=== PATIENT | male | born 1955 | race Caucasian/White ===

== ENCOUNTER 2016-08-30 23:23 | Emergency (ER) | payer MEDICARE ==
[2016-08-30] MEDS ORDERED: LABETALOL HCL INJ 20 MG/4 ML DISP.SYRIN IV ONE (23:46)
--- NOTE | 2016-08-30 23:46 | ER Document Report ---
ED Neuro Symptoms/Deficit - General Mode of Arrival: Medic Information source: Patient, Relative - , Emergency Med Personnel - HPI Patient complains to provider of: Weakness - left Onset: Just prior to arrival - 221 Associated symptoms: Other - See above <BO TOLLIVER - Last Filed: 08/31/16 04:26> <ZAINKRISTEN WILBERT - Last Filed: 08/31/16 05:59> - General Chief Complaint: S/S of Possible Stroke Stated Complaint: POSSIBLE STROKE Notes: Patient is a 61 year old male, with a past medical history including CHF, HTN, and COPD, who presents to the emergency department via EMS for possible stroke onset at 2210 last night. Per , patient had bent over to kiss her yasir and as he walked away he started to look dazed and confused and then lost complete control of his entire left side. Patient's gave him a Alexi Aspirin. EMS report that when they got to the scene patient did not have any left side control. Patient states that he was able to move his left limbs. reports patient has a history of heavy drinking but not for a long time and that this weekend he did drink a little more than usual. denies any change in medications. Patient complains of shaking in his right leg that he cannot control. Patient denies any chest pain or headache. (BO TOLLIVER) - Related Data Allergies/Adverse Reactions: Penicillins Allergy (Verified 08/30/16 23:51) Past Medical History - General Information source: Patient - Social History Smoking Status: Current Every Day Smoker Frequency of alcohol use: Occasional Family History: Reviewed & Not Pertinent - Past Medical History Cardiac Medical History: Reports: Hx Congestive Heart Failure, Hx Hypertension Pulmonary Medical History: Reports: Hx COPD Past Surgical History: Reports: Hx Cardiac Surgery - aortic valve replacement, Hx Coronary Stent - 3 <BO TOLLIVER - Last Filed: 08/31/16 04:26> Review of Systems - Review of Systems Constitutional: See HPI, Weakness EENT: No symptoms reported Cardiovascular: No symptoms reported Respiratory: No symptoms reported Gastrointestinal: No symptoms reported Genitourinary: No symptoms reported Male Genitourinary: No symptoms reported Musculoskeletal: No symptoms reported Skin: No symptoms reported Hematologic/Lymphatic: No symptoms reported Neurological/Psychological: See HPI, Tremor -: Yes All other systems reviewed and negative <BO TOLLIVER - Last Filed: 08/31/16 04:26> Physical Exam - Vital signs Interpretation: Hypertensive, Tachycardic - General General appearance: Alert In distress: Moderate - HEENT Head: Normocephalic, Atraumatic Eyes: Normal Conjunctiva: Normal Cornea: Normal Visual mcdaniel normal: No - deficit L half of visual field Ears: Normal Nasal: Normal Mouth/Lips: Normal Mucous membranes: Normal Pharynx: Normal Neck: Normal - Respiratory Respiratory status: No respiratory distress Breath sounds: Normal - Cardiovascular Rhythm: Regular, Tachycardia - Abdominal Inspection: Normal Tenderness: Nontender - Back Back: Normal - Extremities General upper extremity: Normal inspection. No: Normal ROM General lower extremity: Normal inspection. No: Normal ROM - Neurological Neuro grossly intact: No Cognition: Normal Orientation: AAOx4 [place] Coma Scale Eye Opening: Spontaneous Eligio Coma Scale Verbal: Oriented Eligio Coma Scale Motor: Obeys Commands Eligio Coma Scale Total: 15 Speech: Dysarthria Cranial nerves: Facial palsy Motor strength normal: RUE, RLE. 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 - Skin Skin Temperature: Warm Skin Moisture: Dry Skin Color: Normal <KRISTEN PITTMAN - Last Filed: 08/31/16 05:59> - Vital signs Vitals: Temp 98.7 F 08/30/16 23:35 Course - Laboratory Result Diagrams: 08/30/16 23:40 08/30/16 23:40 - [facility] - Discussed patient for possible transfer [facility] Time consulted: 00:22 - Discussed patient with neurology at [facility] and was agreed patient is a candidate for lytics, accepted patient to transfer to ER <BO TOLLIVER - Last Filed: 08/31/16 04:26> - Laboratory Result Diagrams: 08/30/16 23:40 08/30/16 23:40 - Diagnostic Test Radiology reviewed: Image reviewed, Reports reviewed - EKG Interpretation by Me EKG shows normal: Sinus rhythm Rate: Normal Rhythm: NSR <KRISTEN PITTMAN - Last Filed: 08/31/16 05:59> - Re-evaluation Re-evalutation: Patient is a 61-year-old male who comes in with a left-sided deficit and left visual field deficit. Patient appears to have a left daniela-neglect well. Patient's symptoms began at 10 PM. Patient has no contraindications for lytics. Patient has not had improvement of his symptoms since they began. Patient was discussed with neurologist who agrees with the plan to give lytics his lungs are is no contraindication. Patient has been given labetalol for his blood pressure which is brought in down within an acceptable range. Patient will be transferred to [place] after lytics and been given. This is been discussed with length and family who agrees with this plan. Risk benefits of alteplase a been discussed and they would like to proceed. Stable at time of air transfer to [facility] (KRISTEN PITTMAN) - Vital Signs Vital signs: Temp Pulse Resp BP Pulse Ox 98.7 F 110 H 20 128/80 H 98 08/30/16 23:35 08/31/16 01:18 08/31/16 01:18 08/31/16 01:18 08/31/16 01:18 - Laboratory Laboratory results interpreted by me: 08/30/16 08/30/16 08/30/16 23:40 23:40 23:46 Hgb 18.1 H Hct 52.1 H MCV 98 H MCH 34.2 H Glucose 221 H POC Glucose 249 H Creatine Kinase 355 H 08/31/16 01:47 Hgb Hct MCV MCH Glucose POC Glucose 187 H Creatine Kinase Critical Care Note - Critical Care Note Total time excluding time spent on procedures (mins): 90 - evaluation and management of acute CVA with multiple re-evaluations, counseling of patient and family, transfer to tertiary care center <KRISTEN PITTMAN - Last Filed: 08/31/16 05:59> Discharge <BO TOLLIVER - Last Filed: 08/31/16 04:26> <KRISTEN PITTMAN - Last Filed: 08/31/16 05:59> - Discharge Clinical Impression: Acute CVA (cerebrovascular accident) Condition: Stable Disposition: [facility] Scribe Attestation: 08/31/16 05:59 I personally performed the services described in the documentation, reviewed and edited the documentation which was dictated to the scribe in my presence, and it accurately records my words and actions. (KRISTEN PITTMAN) ED NIH Stroke Scale - NIH Stroke Scale When completed:: Before Alteplase *: 1. NIH scale should be completed with appropriate accompanying assessment tools. *: 2. The NIH should reflect what the patient is capable of doing and should not be coached by the clinician. 1a. Level of Consciousness: 0=Alert;keenly responsive -: 1=Drowsy -: 2=Obtunded -: 3=Coma/unresponsive or reflex to noxious stimuli. 1a. Responses: 0 1b. Orientation Questions: a. What month is it? -: b. How old are you? -: 0=Answers both questions correctly. -: 1=Answers one question correctly or patient is intubated or has orotracheal trauma. -: 2=Answers neither question correctly. 1b. Responses: 0 1c. Response to commands: a. Open and close eyes? -: b. Access Clerk and release hand? -: Credit is given despite weakness. Demonstration of task is permitted. Substitute command if hands cannot be used. -: 0=Performs both tasks correctly -: 1=Performs one task correctly -: 2=Performs neither task correctly 1c. Responses: 0 2. Gaze: Establish eye contact and instruct patient to "Follow my finger" -: 0=Normal -: 1=Partial gaze palsy. Gaze is abnormal in one or both eyes, but where forced deviation or total gaze paresis is not present. -: 2=Forced deviation or total gaze paresis. 2. Responses: 1 3. Visual Mcdaniel: Sees fingers in all four quadrants. -: 0=No visual loss. -: 1=Partial hemianopsia. -: 2=Complete hemianopsia. -: 3=Bilateral hemianopsia (including Cortical blindness) 3. Responses: 2 4. Facial Movement: Instruct patient to: -: a. Show me your teeth -: b. Raise your eyebrows -: c. Close your eyes -: d. Smile -: 0=Normal symmetrical movement -: 1=Minor paralysis (flattened nasolabial fold, asymmetry on smiling). -: 2=Partial paralysis (total or near total paralysis of lower face). -: 3=Complete paralysis of upper and lower face 4. Responses: 1 5. Motor functions (left arm): Alternate sides and extend each arm with palms down (90 degrees if sitting or 45 degrees for supine). -: 0=No drift;limb holds for full 10 seconds. -: 1=Drift; limb holds but drifts down before full 10 seconds, but does not hit bed. -: 2=Some effort against gravity; limb cannot get to or maintain position. -: 3=No effort against gravity; limb falls. -: 4=No movement. -: UN=Amputation, joint fusion, explain in comments. 5. Responses (left arm): 3 5. Motor Functions (right arm): Alternate sides and extend each arm with palms down (90 degrees if sitting or 45 degrees for supine). -: 0=No drift;limb holds for full 10 seconds. -: 1=Drift; limb holds but drifts down before full 10 seconds, but does not hit bed. -: 2=Some effort against gravity; limb cannot get to or maintain position. -: 3=No effort against gravity; limb falls. -: 4=No movement. -: UN=Amputation, joint fusion, explain in comments. 5. Responses (right arm): 0 6. Motor Functions (left leg): With patient lying supine, alternate sides and extend each leg (30 degrees always while supine). -: 0=No drift, leg holds position for full 5 seconds -: 1=Drift; leg falls before full 5 seconds but does not hit bed. -: 2=Some effort against gravity, leg falls to bed but some effort against gravity. -: 3=No effort against gravity, leg falls to bed immediately. -: 4=No movement. -: UN=Amputation, joint fusion; explain in comments. 6. Responses (left leg): 3 6. Motor Functions (right leg): With patient lying supine, alternate sides and extend each leg (30 degrees always while supine). -: 0=No drift, leg holds position for full 5 seconds -: 1=Drift; leg falls before full 5 seconds but does not hit bed. -: 2=Some effort against gravity, leg falls to bed but some effort against gravity. -: 3=No effort against gravity, leg falls to bed immediately. -: 4=No movement. -: UN=Amputation, joint fusion; explain in comments. 6. Responses (right leg): 0 7. Limb Ataxia: With eyes open instruct patient to: -: a. "Touch your finger to your nose". -: b. "Touch your heel to your dahl" -: 0=Absent -: 1=Present in one limb. -: 2=Present in two limbs. -: UN=Amputation or joint fusion; explain in comments. 7. Responses: 2 8. Sensory: Test sensation using pinprick or noxious stimuli. Test as many body parts as possible. -: 0=Normal;no sensory loss -: 1=Mile to moderate sensory loss (patient feels pin prick but is less sharp on affected side). -: 2=Severe or total sensory loss. 8. Responses: 0 9. Best Language: Instruct patient to: -: a. "Describe what you see in this picture." -: b. "Name the items in this picture." -: c. "Read these sentences." -: 0=No aphasia, normal -: 1=Mild to moderate aphasia. -: 2=Severe aphasia -: 3=Mute, global aphasia, no usable speech or auditory comprehension. 9. Responses: 1 10. Articulation, Dysarthia: Instruct patient to: -: "Read these words" or "Repeat these words" -: 0=Normal -: 1=Mild to moderate; patient may slur some words but can be understood without difficulty. -: 2=Severe; patients speech so slurred as to be unintelligible in the absence of dysphasia. -: UN=Intubated or other physical barrier, explain in comments. 10. Responses: 1 11. Extinction or inattention: 0=No abnormality -: 1= Visual, tactile, auditory, spatial, or personal inattention or extinction to bilateral simulation in one or the sensory modalities. -: 2=Profound daniela-inattention or daniela-inattention to more than one modality; does not recognize own hand. Total Score: 14 <KRISTEN PITTMAN - Last Filed: 08/31/16 05:59> Scribe Documentation - Scribe Written by Julio:: julio Soares, 08/31/16, 0240 acting as scribe for :: Zain <BO TOLLIVER - Last Filed: 08/31/16 04:26> ED Alteplase Inc/Exc Criteria - Inclusion Criteria: 1: Patient presented to ED within 3 hours of acute ischemic stroke symptom onset ? -: Yes 2: Did baseline CT exclude intracranial hemorrhage and/or other risk factors? -: Yes 3: Is the age of the patient 18 years of age or greater? -: Yes : If any of the above questions are answered "NO" then stop, patient is not a candidate for Alteplase, : If all of the above questions are answered "YES" then continue with Exclusion Criteria. - Exclusion Criteria: 1: Is there evidence of intracranial hemorrhage on baseline CT? -: No 2: Is there suspicion of subarachnoid hemorrhage (even if CT negative)? -: No 3: Is there a history of serious head trauma, recent previous stroke or SD within 3 months? -: No 4: Does the patient have a clinical presentation consistent with SD or post-SD pericarditis? -: No 5: Is there history of intracranial hemorrhage? -: No 6: On repeated measurement is Systolic BP greater than 185mmHg or Diastolic BP greater that 110 mmHg and is aggressive treatment needed to reduce blood pressure to these limits (e.g. constant infusion of an anti-hypertensive)? -: No 7: Did the patient awake with stroke symptoms? -: No 8: Has the patient had a lumbar puncture or an arterial puncture at a non- compressile site within 7 days? -: No 9: With in the last 14 days did the patient have surgery or major trauma? -: No 10: Is the patient or less than 2 weeks? -: No 11: Was there any active bleeding or acute trauma? -: No 12: Does the patient have intracranial neoplasm, arteriovenous malformation or aneurysm? -: No 13: Does the patient have abnormal glucose (less than 50 or greater than 400mg/ dl)? Record glucose in Comment. -: No 14: Patient has rapidly improving symptoms at the time Alteplase is to be Administered. -: No 15: Does the patient have any risks for bleeding, including but not limited to: a.: Current use of Coumadin with PT greater than 15 seconds or INR greater than 1.7. b.: Current use of Pradaxa (Dabigatran). c.: Heparin administereed within the past 48 hours and PTT elevated. d.: Platelet count less than 100,000/mm. e.: Major surgery or serious trauma within 14 days. f.: Gastrointestinal or gynecological urinary bleeding within 14 days. g.: Myocardial Infarction (SD) within 3 months. -: No : If the answer to any of the above questions is "YES" then stop, the patient is not a candidate for Alteplase. : If the answer to all of the above questions is "NO" then the patient may be eligible for the Administration of Alteplase. : If the patient is noted to have seizure activity at onset of Stroke symptoms; Consult Neurologist for further evaluation. - The patient is: -: Included and is eligible to receive Alteplase. *Initiate bed placement at higher level of care* --: Yes - Michelledant Reviewd risks & benefits of thrombolytic therapy: I have reviewed the risks and benefits of thrombolytic therapy with the patient and/or his/her family. Yes -: Excluded and not eligible to receive Alteplase for the above exclusions. --: No -: Excluded and not eligible to receive Alteplase for other reasons (specify in comments): --: No - Diagnosis of TIA: -: Patient presented with transient symptoms that are now resolved and no other neurologic findings are currently present. List symptoms in comments. -: No -: Patient is NOT a candidate for tPA. -: No -: ____(put name in comment) has been consulted for admission and continued evaluation of risk factor assessment. Comment: Aaron <KRISTEN PITTMAN - Last Filed: 08/31/16 05:59>
[2016-08-30 23:48] LABS: ABSOLUTE BASOPHILS # (AUTO) 0.1 10^3/uL (0.0-0.2); ABSOLUTE EOSINOPHILS # (AUTO) 0.1 10^3/uL (0.0-0.6); ABSOLUTE LYMPHOCYTES (AUTO) 2.5 10^3/uL (0.5-4.7); ABSOLUTE MONOCYTES (AUTO) 0.9 10^3/uL (0.1-1.4); BASOPHILS % (AUTO) 0.7 % (0-2); HEMATOCRIT 52.1 % (37.9-51.0); HEMOGLOBIN 18.1 g/dL (13.5-17.0); HGB HCT DIFFERENCE 2.2; MEAN CORPUSCULAR HEMOGLOBIN 34.2 pg (27.0-33.4); MEAN CORPUSCULAR HGB CONC 34.8 g/dL (32.0-36.0); MEAN CORPUSCULAR VOLUME 98 fl (80-97); RED BLOOD COUNT 5.31 10^6/uL (4.35-5.55); SEGMENTED NEUTROPHILS % (AUTO) 63.3 % (42-78); WHITE BLOOD COUNT 9.5 10^3/uL (4.0-10.5)
[2016-08-30 23:53] LABS: PARTIAL THROMBOPLASTIN TIME 26.8 SEC (23.5-35.8); PROTHROMBIN TIME 12.6 SEC (11.4-15.4)
[2016-08-31 00:09] LABS: ALANINE AMINOTRANSFERASE 40 U/L (21-72); ALBUMIN 4.4 g/dL (3.5-5.0); ALKALINE PHOSPHATASE 104 U/L (38-126); ANION GAP 12 (5-19); ASPARTATE AMINO TRANSFERASE 35 U/L (17-59); BILIRUBIN,TOTAL 0.9 mg/dL (0.2-1.3); BLOOD UREA NITROGEN 14 mg/dL (7-20); CALCIUM 10.2 mg/dL (8.4-10.2); CARBON DIOXIDE 28 mmol/L (22-30); CHLORIDE 103 mmol/L (98-107); CREATINE KINASE 355 U/L (55-170); CREATININE RESULT 0.81 mg/dL (0.52-1.25); GLUCOSE 221 mg/dL (75-110); POTASSIUM 3.9 mmol/L (3.6-5.0); SODIUM 142.7 mmol/L (137-145); TOTAL PROTEIN 7.4 g/dL (6.3-8.2)
[2016-08-31 00:27] LABS: CREATINE KINASE MB 3.53 ng/mL (<4.55)
[2016-08-31] MEDS ORDERED: ALTEPLASE INJ 100 MG VIAL IV ONE (00:27)
[2016-08-31 00:38] LABS: TROPONIN I 0.053 ng/mL
[2016-08-31 01:26] VITALS: BP 128/80
--- NOTE | 2016-09-01 09:36 | EKG REPORT ---
SEVERITY:- ABNORMAL ECG - SINUS TACHYCARDIA ATRIAL PREMATURE COMPLEX NONSPECIFIC IVCD WITH LAD LVH WITH SECONDARY REPOLARIZATION ABNORMALITY INFERIOR INFARCT, ACUTE ANTERIOR INFARCT, AGE INDETERMINATE : Confirmed by: Rafi King 01-Sep-2016 09:35:27
== END 2016-08-31 01:45 | disposition short-term general hospital (02) ==
LOC: ER 23:23
DX: I63.9 Cerebral infarction, unspecified (principal); H53.8 Other visual disturbances; G81.94 Hemiplegia, unspecified affecting left nondominant side; F17.200 Nicotine dependence, unspecified, uncomplicated; I50.9 Heart failure, unspecified; I11.0 Hypertensive heart disease with heart failure; J44.9 Chronic obstructive pulmonary disease, unspecified; Z95.2 Presence of prosthetic heart valve
CPT/HCPCS: 93005; 99291; 99292; 96374; 96375; 36415; 82553; 82962; 82550; 85025; 85610; 85730; 80053; 84484; 71010; 70450; 93010; J3490; J2997